=== PATIENT | male | born 1975 | race Caucasian/White ===

== ENCOUNTER 2019-09-28 12:03 | Emergency (ER) | payer BC, OTHER ==
[~2019-09-28] VITALS: Ht 180.3 cm; Wt 145.0 kg
[2019-09-28 12:06] VITALS: BP 198/120
== END 2019-09-28 13:06 | disposition home or self-care (01) ==
LOC: ED 12:32
DX: I10 Essential (primary) hypertension (principal); R51 Headache
CPT/HCPCS: 99281